=== PATIENT | female | born 1995 | race Caucasian/White ===

== ENCOUNTER 2016-10-30 02:20 | Emergency (ER) | payer MEDICAID ==
[~2016-10-30] VITALS: Ht 152.4 cm; Wt 47.6 kg
[2016-10-30 02:28] VITALS: BP 110/68
--- NOTE | 2016-10-30 02:30 | NUR ---
Note loni in EDM - 10/30/16 at 0327 by [facility] / c/o abdominal pain that woke her up from her sleep. Denies N/V/D. Denies fever or chills. Abdomen soft, non tender. VSS.
--- NOTE | 2016-10-30 02:33 | NUR ---
TO ER BED 5
[2016-10-30] MEDS ORDERED: PANTOPRAZOLE 40 MG TABEC PO ONE (02:45)
--- NOTE | 2016-10-30 02:56 | NUR ---
Pt found sitting in bed, calm and relaxed. No distress noted.
--- NOTE | 2016-10-30 03:00 | NUR ---
21/F c/o abdominal pain that woke her up from her sleep. Denies N/V/D. Denies fever or chills. Abdomen soft, non tender. VSS.
[2016-10-30 03:25] VITALS: BP 110/68
--- NOTE | 2016-10-30 03:25 | NUR ---
Patient discharged with v/s stable. Written and verbal after care instructions given and explained. Patient alert, oriented and verbalized understanding of instructions. Ambulatory with steady gait. All questions addressed prior to discharge. ID band removed. Patient advised to follow up with PMD. Rx of Tramadol 50mg and Omeprazole 40mg given. Patient educated on indication of medication including possible reaction and side effects. Opportunity to ask questions provided and answered.
== END 2016-10-30 03:25 | disposition home or self-care (01) ==
LOC: MED 02:20
DX: K29.00 Acute gastritis without bleeding (principal); M54.9 Dorsalgia, unspecified
CPT/HCPCS: 81002; 81025; 99283